=== PATIENT | male | born 1990 | race Caucasian/White ===

== ENCOUNTER 2024-10-06 14:28 | Outpatient (AMB) | payer OTHER, SELFPAY ==
--- NOTE | 2024-10-06 14:27 | ACNOTE_ITS ---
Vital Signs 10/06/24 14:53 Weight 79.435 kg Weight Measurement Method Standing Scale BP 125/76 Blood Pressure Source Automatic Cuff Blood Pressure Location Left Upper Arm Position Sitting Respiration 16 Pulse 75 Pulse Source Monitor Temp 98.3 F Temp Source Temporal Artery Scan Pulse Oximetry (%) 98 Oxygen Delivery Method Room Air Allergies/Meds Allergies & Medications Allergies No Known Allergies Allergy (Verified 10/06/24 14:55) Medication Reconciliation sertraline 50 mg tablet 150 mg (3 x 50 mg) PO QDAY 30 days #90 tabs 06/09/24 [Rx Confirmed 10/06/24] albuterol sulfate 90 mcg/actuation aerosol inhaler 2 puff inhalation Q6H PRN shortness of breath or wheezing #6.7 grams 08/14/24 [Rx Confirmed 10/06/24] bisoprolol fumarate 5 mg tablet 5 mg PO QDAY #30 tabs 09/15/24 [Rx Confirmed 10/06/24] MA Intake Visit Data Collection New Patient or Established: Established Patient (seen at [facility] within 3 years) Seen by Clinical Staff ONLY (RN/DANITZA): No Pain Present Currently: No Pain scale:: 0 Pain Scale Used: Coon-Barrientos/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 PCP or OBGYN visit in last 3 months: No Hx Now: No Do You Feel Safe at Home: Yes Authorities Contacted: N/A Smoking Status Smoking Status: Former smoker Immunization / Flu Flu Vaccine in the Last 12 Months: Yes Flu Vaccine Exclusion Criteria: No Exclusion Criteria and Already Received Past Medical History Past Medical History RESPIRATORY: Positive Tobacco Use ENT: Positive Ear Infection PSYCHO/SOCIAL: Positive Anxiety Social History SMOKING STATUS: Smoking status: Former smoker HOUSING: Housing: Apartment LIVES WITH: Lives With: Alone Patient Portal [facility] Social History Living Situation History Housing: Apartment Tobacco History Smoking Status: Former smoker Domestic Abuse History Do You Feel Safe at Home: Yes Review of Systems Report any current symptoms Only answer those that you have currently: General Complaints fatigue: Yes lack of energy: Yes Muscles or Bones joint pain: Yes joint swelling: Yes stiffness: Yes Skin or Breasts skin redness: Yes Past Medical History Past Medical History Have you ever been diagnosed with any of the following: Respiratory Problems Tobacco Use: Yes Head,Eye,Nose,Throat Problems Chronic Ear Infections: Yes Psychologic Problems Anxiety: Yes History of Present Illness HPI Narrative Patient is a 34y/o M who presents to clinic due to intermittent 6 month history of joint pain/swelling/erythema and stiffness in the PIP of both hands. Symptoms start sporadically and have migrated to multiple PIP in both hands. He has tried NSAIDs with minimal improvement of symptoms. Additionally reports fatigue/weakness. On review of labs, patient also had elevated triglycerides and cholesterol. Review of Systems Review of Systems Systems Reviewed: All systems reviewed, normal except as documented Constitutional Constitutional: Reports fatigue and Reports lethargy Musculoskeletal Musculoskeletal: Reports arthralgias, Reports joint swelling and Reports stiffness Integumentary/Breasts Skin/Breast: Reports erythema Endocrine Endocrine: Reports fatigue Objective/Exam Narrative Physical exam: Gen: AAOx3, mild distress from pain HEENT: NCAT, PERRLA, EOMI, MMM, no LAD CVS: normal S1, S2. RRR. No MRG Resp: CTA B/L. No rhonchi, rales, crackles or wheezing MSK: Good ROM in BUE & BLE. Swollen/erythematous PIP on right 4th digit Neuro: CN II-XII grossly intact. Strength 5/5 in BUE & BLE. Assessment & Plan Diagnosis / Problem List (1) Joint pain in fingers of both hands: Status: Acute Assessment & Plan: Migrating erythema/pain/stiffness/swelling in PIP of multiple fingers in b ilateral hands; intermittently over last 6 months Currently right 4th digit affected Plan: DDx includes rheumatoid arthritis, gout, pseudogout Will order CBC, CMP, TACOS, RF, anti-CCP, ESR, CRP and uric acid (2) Hypercholesteremia: Status: Acute Assessment & Plan: Reviewed labs with TG 192, total cholesterol 224, LDL 132 Plan: Will repeat lipid panel Encouraged patient to try diet/lifestyle modifications, and will follow up after labs May consider starting statin Plan F/U labs Orders: Orders Rheumatoid Factor* 10/06/24 M25.541 - Pain in joints of right hand, M25.542 - Pain in joints of left hand CCP Antibody (IgG)* 10/06/24 M25.541 - Pain in joints of right hand, M25.542 - Pain in joints of left hand hs-CRP* 10/06/24 M25.541 - Pain in joints of right hand, M25.542 - Pain in joints of left hand Lipid Panel 10/06/24 E78.00 - Pure hypercholesterolemia, unspecified CBC 10/06/24 M25.541 - Pain in joints of right hand, M25.542 - Pain in joints of left hand Comprehensive Metabolic Panel 10/06/24 M25.541 - Pain in joints of right hand, M25.542 - Pain in joints of left hand Sed Rate (ESR) 10/06/24 M25.541 - Pain in joints of right hand, M25.542 - Pain in joints of left hand Uric Acid 10/06/24 M25.541 - Pain in joints of right hand, M25.542 - Pain in joints of left hand TACOS IFA Screen w/refl, IFA* 10/06/24 M25.541 - Pain in joints of right hand, M25.542 - Pain in joints of left hand Additional Assessment Internal Medicine Attending Note: Case discussed with and agree with note and management plan of Resident Physician as per Resident's Note above. Issues of concern for present visit are as follows: Follow-up visit. Intermittent joint pain/swelling/erythema/stiffness. Notes mainly in PIP joints of bilateral hands. Symptoms for approximately 6 months. NSAIDs have helped minimally. Notes of fatigue and weakness. Prior labs reviewed with mildly elevated triglycerides and total cholesterol. Note made of erythema on multiple PIP joints today. We will do rheumatologic workup as noted. Lifestyle modification for now for hyperlipidemia, consider medications though given current symptoms, we will hold off on a statin for now. Dorian Brady MD Physician Billing Established Patient Established Patient: E/M Level 3-CPT 24330 Office Procedures [facility] Level of Care Nursing/Assessment Patient Status: Established Patient Nursing Assessment/Reassessment: Medication Reconciliation, Update PMH in EMR and Vital Signs Coordination of Care: Complex Care and Chronic Disease 1-5, Consent,records obtained, informed consent, Education Simp Pt/Fam, Lab and Imaging orders and Staff clarify orders Established Patient Charge Established Patient Point Assignment: 100 Established Patient Point Charge: EP Level 3 (80-115)
[2024-10-06 14:53] VITALS: BP 125/76; PULSE 75; RESP 16; TEMP 36.8; O2SAT 98
== END 2024-10-06 15:39 | disposition home or self-care (01) ==
LOC: HODAHC 14:28
PROVIDERS: Supervising Provider Internal Medicine; Visit Provider Student in an Organized Health Care Education/Training Program
DX: M25.542 Pain in joints of left hand (principal); M25.541 Pain in joints of right hand; E78.00 Pure hypercholesterolemia, unspecified; R53.83 Other fatigue; R53.1 Weakness
CPT/HCPCS: 99213; G0463

== ENCOUNTER → 2024-10-06 | Outpatient (CLI) | payer OTHER, SELFPAY ==
[2024-10-06 15:50] LABS: RA Screen Negative (Negative)
[2024-10-06 15:56] LABS: Alanine Aminotransferase 18 U/L (10-49); Albumin, Serum 4.7 gm/dL (3.5-5.0); Albumin/Globulin Ratio 1.8 (1.2-2.2); Alkaline Phosphatase 63 U/L (46-116); Anion Gap 8 (7-16); Aspartate Amino Transferase 18 U/L (0-34); BUN/Creatinine Ratio 14 Ratio (12-20); Bilirubin,Total 0.7 mg/dL (0.3-1.2); Blood Urea Nitrogen 15 mg/dL (9-23); Calcium 9.3 mg/dL (8.3-10.6); Calcium (Corrected) 9.3 mg/dL (8.5-10.1); Carbon Dioxide 27.3 mMol/L (20.0-31.0); Chloride 107 mMol/L (98-107); Cholesterol 224 mg/dL (132-200); Creatinine (Component) 1.1 mg/dL (0.6-1.3); Globulin 2.6 gm/dL (2.3-3.5); Glucose 96 mg/dL (74-106); HDL Cholesterol 56 mg/dL (40-60); LDL Cholesterol,Calculated 135 mg/dL (0-130); Osmolality,Calculated 283 (275-295); Potassium 3.5 mMol/L (3.4-5.1); Sodium 142 mMol/L (136-145); Total Protein 7.3 gm/dL (5.7-8.2); Triglycerides 166 mg/dL (30-150); Uric Acid 5.1 mg/dL (3.7-9.2); eGFR > 60 See Note
[2024-10-06 16:34] LABS: Sed Rate (ESR) 12 mm/hr (0-15)
[2024-10-17 06:42] LABS: ANA Screen, IFA POSITIVE (NEGATIVE); CCP Antibody (IgG)* <16 Units; hs-CRP* 9.9 mg/L
== END | disposition home or self-care (01) ==
PROVIDERS: PCP Student in an Organized Health Care Education/Training Program; Referring Provider Student in an Organized Health Care Education/Training Program; Visit Provider Student in an Organized Health Care Education/Training Program
DX: M25.541 Pain in joints of right hand (principal); M25.542 Pain in joints of left hand; E78.00 Pure hypercholesterolemia, unspecified
CPT/HCPCS: 36415; 80053; 80061; 84550; 85652; 86038; 86141; 86200; 86430